=== PATIENT | female | born 1955 | race Caucasian/White ===

== ENCOUNTER → 2020-12-26 | Outpatient (CLI) | payer MEDICARE ==
[~2020-12-26] MED LIST: ASPIRIN81 MG PO; COZAAR100 MG PO; FLONASE 0.05% N16 GM; HYDROCHLOROTH12.5 MG PO; K-DUR TAB 10 M10 MEQ PO; LAMICTAL TAB 1100 MG PO; LAMISIL TAB 25250 MG PO; MOBIC7.5 MG PO; NEURONTIN600 MG PO; NITROGLYCERIN0.4 MG SL; NORCO 7.5-3251 EACH PO; OMEPRAZOLE20 MG PO; TIROSINT88 MCG PO; TOPROL XL100 MG PO; ZOCOR 40 MG TAB40 MG PO; ZYLOPRIM 100 M100 MG PO
== END ==
LOC: KOH-I 09:20
DX: M79.672 Pain in left foot (principal); M79.671 Pain in right foot; M19.072 Primary osteoarthritis, left ankle and foot; M19.071 Primary osteoarthritis, right ankle and foot
CPT/HCPCS: 73610

== ENCOUNTER → 2021-01-08 | Outpatient (CLI) | payer MEDICARE | LOC: KOH-I 11:10 | DX: S86.012A Strain of left Achilles tendon, initial encounter (principal) | CPT/HCPCS: 73718 ==